=== PATIENT | male | born 1995 | race Caucasian/White ===

== ENCOUNTER 2018-05-11 11:18 | Emergency (ER) | payer OTHER, SELFPAY ==
[2018-05-11 11:19] VITALS: BP 166/104; PULSE 88; RESP 20; TEMP 36.6; O2SAT 100; BMI 39.9
--- NOTE | 2018-05-11 12:03 | RAD_ITS ---
STUDY: X-RAY - LEFT KNEE REASON FOR EXAM: Male, 22 years old. Pain following a fall. TECHNIQUE: 3 view(s) of the knee. COMPARISON: None. FINDINGS: Normal visualized distal femur. Normal visualized proximal tibia and fibula. Normal proximal tibiofibular articulation. Normal medial femorotibial compartment. Normal lateral femorotibial compartment. Normal patellofemoral articulation. Multiple tiny radiopacities seen in the medial soft tissues overlying the proximal anterior tibia. These most likely represent foreign bodies. RAD/Knee 3 Views IMPRESSION: Find suggestive of foreign bodies within the soft tissues anterior and medial to the proximal tibia. Electronically Signed: Blu Reno MD at 12:58 EST Tel [phone], Service support ,
--- NOTE | 2018-05-11 12:03 | RAD_ITS ---
STUDY: X-RAY - LEFT ANKLE REASON FOR EXAM: Male, 22 years old. Anterior ankle pain following a fall. TECHNIQUE: 3 view(s) of the ankle. COMPARISON: None. FINDINGS: Normal visualized distal tibia and fibula. Normal medial and lateral malleoli. Normal tibiotalar articulation and ankle mortise. Normal visualized talus and calcaneus. The visualized subtalar, talonavicular, calcaneocuboid and tarsal articulations are normal. Soft tissue swelling overlying the medial malleolus. RAD/Ankle min 3 Views IMPRESSION: Soft tissue swelling overlying the medial malleolus. Electronically Signed: Blu Reno MD at 12:57 EST Tel [phone], Service support ,
--- NOTE | 2018-05-11 12:03 | RAD_ITS ---
STUDY: X-RAY - LEFT WRIST REASON FOR EXAM: Male, 22 years old. History of fall. TECHNIQUE: 3 view(s) of the wrist were obtained. COMPARISON: None. FINDINGS: Normal visualized distal radius and ulna. Normal radiocarpal articulation. Normal distal radioulnar articulation. Normal carpal bones. Normal carpal articulations. Normal carpometacarpal articulation of the thumb. Normal second through fifth carpometacarpal articulations. Normal visualized metacarpal bones. Soft tissue swelling. RAD/Wrist min 3 Views IMPRESSION: Soft tissue swelling. Electronically Signed: Blu Reno MD at 12:59 EST Tel [phone], Service support ,
[2018-05-11 12:40] VITALS: BP 161/95; PULSE 87; RESP 18; O2SAT 99
[2018-05-11 12:45] VITALS: O2SAT 99
[2018-05-11] MEDS: oxyCODONE 5 MG Tablet 10 MG PO (13:03)
[2018-05-11] MEDS: Diphth,Pertuss(Acell),Tet Vac 0.5 ML Vial IM (13:04)
--- NOTE | 2018-05-11 13:53 | ED.VISSUMM ---
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 The fall was mechanical. He slipped and landed on his left knee, ankle, and wrist. He did not hit his head or lose consciousness. He denies any other injuries. No back pain. He sustained an abrasion to his left knee. Physical Examination: No sign of head trauma. No cervical spine tenderness. No lumbar or thoracic tenderness. No abdominal tenderness. He has a superficial abrasion on his left wrist with tenderness over the distal radius but the skin is otherwise intact. No full-thickness lacerations. Strong distal pulses. No other upper extremity tenderness noted. He has tenderness on palpation left knee and ankle both medially. There are multiple abrasions over the left knee but nothing full-thickness. There are multiple pieces of gravel and dirt over his left knee. Test Results: Left wrist x-ray negative for fracture. Left ankle x-ray negative for fracture. Left knee x-ray negative for fracture but did reveal multiple radiopaque foreign bodies which when I reexamined him, appeared to actually be on the skin and not actually in the soft tissues. Emergency Department Course and Treatment: His left knee was cleansed and irrigated extensively. There is no evidence of foreign body underneath the skin. There are multiple superficial abrasions/road rash from landing on gravel/pavement. The wounds were cleansed and dressed. He was placed in an Alfredo bandage. He was placed in an Aircast for the left ankle and given crutches. He has no evidence of other injuries. He is able to walk with crutches without difficulty despite also having a Velcro left wrist splint on. He was referred to orthopedics for follow-up. He will return if worse. Treatment Plan: Follow-up with orthopedics Disposition: Home stable Impression: Initial encounter acute left ankle sprain, initial encounter acute left knee contusion, initial encounter left knee abrasions, initial encounter left wrist sprain, work-related This note was generated with Vide[employer] dictation software. It may contain incorrect words, spelling, and punctuation that were not noted in review of the chart prior to signing ED Disposition - Plan for ED Patient: Chief Complaint: Fall Instructions: ED Sprain Knee, ED Sprain Wrist, ED Splint Care Velcro Referrals: Valdemar Lucero MD [STAFF PHYSICIAN] - As soon as possible
--- NOTE | 2018-05-11 13:59 | ED.VISSUMM ---
- ER Visit Summary Date of Service: 05/11/18 Chief Complaint: [] History of Present Illness: The patient is a 22 M [] Physical Examination: [] Test Results: [] Emergency Department Course and Treatment: [] Treatment Plan: [] Disposition: [] Impression: [] This note was generated with C[employer] dictation software. It may contain incorrect words, spelling, and punctuation that were not noted in review of the chart prior to signing ED Disposition - Plan for ED Patient: Chief Complaint: Fall Instructions: ED Sprain Knee, ED Splint Care Velcro, ED Sprain Wrist Referrals: Valdemar Lucero MD [STAFF PHYSICIAN] - As soon as possible
[2018-05-11 14:31] VITALS: BP 152/80; PULSE 85; RESP 18; O2SAT 98
[2018-05-11 14:54] VITALS: BP 152/80; PULSE 85; RESP 14; O2SAT 98
[2018-05-11] MEDS: BACITRACIN 15 GM Tube 1 APPLIC TOPICAL (14:56)
--- NOTE | 2018-05-11 15:02 | ED.RN ---
CALLED AND SPOKE WITH [facility]. NO TEST PER EMPLOYER. CALLED [phone]
== END 2018-05-11 14:56 | disposition home or self-care (01) ==
LOC: ED 13:39
PROVIDERS: Emergency Provider Emergency Medicine; Family Provider Family Medicine; PCP Family Medicine
DX: S93.402A Sprain of unspecified ligament of left ankle, initial encounter (principal); S80.02XA Contusion of left knee, initial encounter; S80.212A Abrasion, left knee, initial encounter; S63.502A Unspecified sprain of left wrist, initial encounter; S60.812A Abrasion of left wrist, initial encounter; W17.89XA Other fall from one level to another, initial encounter; Y93.9 Activity, unspecified; Y92.9 Unspecified place or not applicable
CPT/HCPCS: 73110; 73562; 73610; 90715; 99285

== ENCOUNTER 2021-05-07 15:56 | Emergency (ER) | payer OTHER, SELFPAY ==
[2021-05-07 15:57] VITALS: BP 167/101; PULSE 127; RESP 20; TEMP 35.9; O2SAT 97; BMI 41.2
--- NOTE | 2021-05-07 16:00 | EKG12_ITS ---
Test Reason : CP Blood Pressure : / mmHG Vent. Rate : 120 BPM Atrial Rate : 120 BPM P-R Int : 126 ms QRS Dur : 090 ms QT Int : 320 ms P-R-T Axes : 007 052 021 degrees QTc Int : 452 ms Sinus tachycardia Otherwise normal ECG Confirmed by SAFIA BHANDARI, CALEB ([id number]), newspaper managing editor NEIDA RAMOS ([id number]) on 05/09/2021 1:52:21 P M Referred By: PÉREZ/SHIN/PEDRO/MISSAEL Confirmed By:PRUDENCE BAIG MD
--- NOTE | 2021-05-07 16:30 | RAD_ITS ---
STUDY: X-RAY CHEST REASON FOR EXAM: Male, 25 years old. Chest pain TECHNIQUE: Single AP portable view of the chest. COMPARISON: 2012 FINDINGS: The lungs are clear and expanded. There is no demonstrated pleural abnormality. Normal size heart. Normal mediastinum and tresa. Normal visualized pulmonary arteries. Normal visualized aortic arch and descending thoracic aorta. Stable surgical hardware in the thoracic spine. Normal visualized ribs, clavicles, and shoulders. There is no demonstrated abnormality of the visualized soft tissue structures of the upper abdomen. RAD/Chest 1 View (Portable) IMPRESSION: No acute pulmonary process Electronically Signed: Jonas Wu MD at 16:58 EST , Service support ,
[2021-05-07 17:03] LABS: Absolute Lymphocyte Count 1.39 X10^3/uL (0.83-4.51); Absolute Neutrophil Count 5.8 X10^3/uL (2.0-7.7); Basophil# 0.03 X10^3/uL; Basophil% 0.4 % (0-1); Hematocrit 44.7 % (40-54); Hemoglobin 15.6 g/dL (13.0-16.5); Lymphocyte # 1.39 X10^3/ul (0.83-4.51); Lymphocyte % 17.2 % (19-41); Mean Corp Hgb Conc 34.9 g/dL (32-36); Mean Corpuscular Hgb 29.3 pg (27.0-32.0); Mean Corpuscular Volume 83.9 fL (80-94); Mean Platelet Vol. 10.2 fl (6.2-12.0); Monocyte# 0.89 X10^3/uL; NRBC Flagged by Analyzer 0 % (0-5); Neutrophil # 5.75 X10^3/uL (2.7-7.7); Platelet Count 202 K/mm3 (150-450); RBC Distribution Width SD 39.4 fl (35.1-43.9); Red Blood Count 5.33 M/mm3 (4.6-6.2); White Blood Count 8.1 K/mm3 (4.4-11.0)
[2021-05-07 17:17] LABS: Anion Gap 10 (5-15); BUN 17 mg/dL (7-18); BUN/Creat Ratio 13.9 RATIO (10-20); Calcium,Total 9.1 mg/dL (8.5-10.1); Chloride 104 mmol/L (98-107); Creatinine, Serum 1.22 mg/dL (0.70-1.30); EST Glomerular Filtration Rate 76 mL/min (>60); Est Glom Filt Rate - Afr Amer 93 mL/min (>60); Estimated Creatinine Clearance 110.63 ml/min; Glucose 127 mg/dL (74-106); Potassium 3.7 mmol/L (3.5-5.1); Sodium Level 133 mmol/L (136-145); Troponin-I HS 7 pg/mL (3.0-78.0)
[2021-05-07 18:18] VITALS: BP 154/106; PULSE 113; RESP 15; O2SAT 97
--- NOTE | 2021-05-07 18:40 | CT_ITS ---
STUDY: CTA CHEST REASON FOR EXAM: Male, 25 years old. Dyspnea. Chest pain for 6 days. RADIATION DOSAGE (If Supplied By Facility): CTDIvol = ( 12.66 ) mGy, DLP = ( 567.16 ) mGycm TECHNIQUE: The examination was performed with the intravenous administration of IV 100mL Isovue-370. Post-processing of the angiographic images was performed, with multiplanar reformation and 3D reconstruction. Individualized dose optimization techniques were used for this CT. COMPARISON: Chest, 05/07/2021. FINDINGS: Normal enhancement of the main pulmonary artery and right and left pulmonary arteries. Normal enhancement of the bilateral peripheral pulmonary arteries. There is no demonstrated pulmonary embolism. Normal thoracic aorta and visualized great vessels. There is no demonstrated aortic dissection. Normal heart and pericardium. Normal mediastinum. Normal hilar regions. Normal visualized trachea and bronchi. The lungs are well expanded. Normal pulmonary parenchyma. Normal pleura. Normal chest wall structures. There is fusion of the thoracolumbar spine. There is splenomegaly with normal size liver. CT/CTA Chest W/WO Contrast IMPRESSION: 1. No evidence of pulmonary embolus. 2. No aortic dissection or aneurysm. 3. No acute pulmonary disease. 4. Splenomegaly. 5. Fusion of the thoracolumbar spine. Electronically Signed: Wolfgang Hsu DO at 19:18 EST Tel [phone], Service support ,
--- NOTE | 2021-05-07 18:50 | ED.RN ---
rn to bedside to swab for covid. pt refused. states he was tested for covid on wednesday and result was negative. dr lenz notified at this time.
--- NOTE | 2021-05-07 21:01 | EDS_ITS ---
HPI History of Present Illness Chief Complaint: Chest Pain Informant: patient Onset/Context/Timing Onset: Days (6) Activity at onset: gradual Timing: Continuous Quality: Positive for Sharp Location: Left Chest Worsened By: Nothing Relieved By: Nothing Associated Symptoms: Positive for Nausea, Vomiting, Diaphoresis, Fever, Lightheadedness, Acid Reflux and Palpitations; Negative for Dyspnea and Cough Narrative Narrative: Patient presents with chest pain that has been constant for the past 6 days. Patient states it is gradually been getting worse. Patient states it is sharp. Patient states it waxes and wanes. Patient states that sometimes he gets a quick stabbing pain in his left chest. Patient states nothing makes it worse and nothing makes it better. Patient admits to some nausea and vomiting. Patient admits to some diaphoresis. Patient also admits to a fever and sore throat. Patient is concerned that he may have strep throat. Patient started amoxicillin that his mother gave him that she had leftover from previous strep throat. CVD Risk Factors: Positive for Smoking; Negative for Hypertension, Diabetes, Hypercholesterolemia and Family History 1' </=55 PE Risk Factors: Positive for Recent Travel/Surgery and Prior DVT or PE; Negative for Recent Immobilization, Cancer and OCP + Smoking + >/=35 PFSH PFSH Medical History (Updated 05/07/21 @ 21:[address] Josr De León DO) GERD (gastroesophageal reflux disease) Pulmonary embolism Allergy/AdvReac Type Severity Reaction Status Date / Time No Known Allergies Allergy Verified 05/07/21 16:00 Surgical History (Updated 05/07/21 @ 21:[address] Josr De León DO) History of back surgery Social History (Updated 05/07/21 @ 21:[address] Josr De León DO) Smoking Status: Heavy Smoker (>10/day) ROS ROS ED Constitutional Constitutional ED: Reports chills and fever(s) Eyes Eyes: Denies blurry vision or change in vision ENT ENT ED: Reports sore throat; Denies rhinorrhea Cardiovascular Cardiovascular: Reports chest pain and palpitations Respiratory/Chest Respiratory/Chest: Denies cough or dyspnea Gastrointestinal Gastrointestinal: Reports diarrhea, nausea and vomiting; Denies abdominal pain Genitourinary Genitourinary ED: Denies dysuria or hematuria Musculoskeletal Musculoskeletal: Reports back pain and neck pain Integumentary Denies abscess or rash Neurologic Neurologic: Reports headache(s); Denies weakness Allergic/Immunologic Allergic/Immunologic ED: Denies mouth swelling or urticaria EXAM Physical Exam Const Vital Signs: 05/07/21 15:57 05/07/21 18:16 05/07/21 18:18 Temperature 96.7 F L Temperature Source Temporal Pulse Rate 127 H 113 H Respiratory Rate 20 H 15 Respiratory Effort Blood Pressure 167/101 H 154/106 H Blood Pressure Mean 123 122 Pulse Ox 97 97 Oxygen Delivery Method Room Air Room Air Room Air 05/07/21 18:19 Temperature Temperature Source Pulse Rate Respiratory Rate Respiratory Effort Normal Non-Labored Blood Pressure Blood Pressure Mean Pulse Ox Oxygen Delivery Method Positive well nourished, well developed and obese General Appearance ED: well developed Nutritional Appearance: obese HEENT normocephalic and atraumatic Eyes PERRL and EOMs intact bilaterally Neck supple and no JVD Chest Wall palpation of chest normal Resp normal respiratory effort and clear to auscultation bilaterally Effort and Inspection: Negative for respiratory distress Cardio regular rhythm and no murmurs Rate: tachycardic GI normal to inspection, nondistended, normoactive bowel sounds, soft to palpation, non-tender and non-distended Extremity normal to inspection General Extremety ED: Negative for edema or tenderness General Extremity: Negative for edema Neuro oriented x3, CN's II-XII intact bilaterally and no sensory deficits noted Sensorium / Orientation: awake and alert Motor Exam: strength 5/5 throughout Psych mental status grossly normal Heart Score History: Slightly/Non-Suspicious ECG: Normal Age: </= 45 years Risk Factors: 1 or 2 Risk Factors Troponin: </= Normal Limit Score: 1 MDM MDM MDM Narrative Medical decision making narrative: EKG was obtained. On my interpretation, it showed a sinus tachycardia with a rate of 120. [place] interval, QRS interval, and QTc intervals were all normal. [place] was normal. There are no acute ST or T wave changes. CBC and basic metabolic profile were within normal limits. High- sensitivity troponin was normal. Portable 1 view chest x-ray was obtained. On my interpretation, lung castillo are clear. There is normal cardiac silhouette. Bony thorax is normal. There is no acute process noted. Radiologist also interpreted the x-ray and agrees. Rapid strep was obtained and was negative. With the patient's prior history of PE, and recent travel, a CTA of the chest was obtained. There is no evidence of pulmonary embolism. Patient was advised of his findings. Patient was advised that this most likely a viral syndrome. Patient was instructed to follow-up with his primary care physician in 3 to 5 days. Patient understood and was agreeable with the plan. All questions were answered. Lab Data Attestation: I reviewed the patient's lab results. Labs: Laboratory Results - last 24 hr 05/07/21 05/07/21 16:45 16:45 WBC 8.1 RBC 5.33 Hgb 15.6 Hct 44.7 MCV 83.9 MCH 29.3 MCHC 34.9 RDW Std Deviation 39.4 RDW Coeff of Madelyn 13.0 Plt Count 202 MPV 10.2 Immature Gran % (Auto) 0.400 Neut % (Auto) 71.0 H Lymph % (Auto) 17.2 L [place] % (Auto) 11.0 H Eos % (Auto) 0.0 Baso % (Auto) 0.4 Absolute Neuts (auto) 5.8 Absolute Lymphs (auto) 1.39 Nucleated RBC % 0 Sodium 133 L Potassium 3.7 Chloride 104 Carbon Dioxide 19.0 L Anion Gap 10 BUN 17 Creatinine 1.22 Estim Creat Clear Calc 110.63 Est GFR (MDRD) Af Amer 93 Est GFR (MDRD) Non-Af 76 BUN/Creatinine Ratio 13.9 Glucose 127 H Calcium 9.1 Troponin I High Sens 7 Radiography Chest X-Ray - ED: 1 View, Read by ED Physician, Read by Radiologist and Normal Diagnostic Testing: Clinical Impression(s) from Imaging Studies Chest X-Ray 05/07/21 16:30 IMPRESSION: No acute pulmonary process Electronically Signed: Jonas Wu MD at 16:58 EST , Service support , Chest CTA 05/07/21 18:40 IMPRESSION: 1. No evidence of pulmonary embolus. 2. No aortic dissection or aneurysm. 3. No acute pulmonary disease. 4. Splenomegaly. 5. Fusion of the thoracolumbar spine. Electronically Signed: Wolfgang Hsu DO at 19:18 EST Tel [phone], Service support , EKG Initial EKG: Attestation: I personally reviewed and interpreted this EKG as follows: Interpretation: No Acute Injury Pattern and Sinus Tachycardia (120) Discharge Plan Triage Chief Complaint: Chest Pain ED Provider: Josr De León Dx/Rx/DC Orders Clinical Impression: Viral illness Instructions: ED Viral Syndrome (Adult) Primary Care Provider: Care Physician,No Primary Referrals: Mike Robles MD [STAFF PHYSICIAN] - 3-5 Days Care Physician,No Primary [Primary Care Provider] - Disposition Disposition: Home, Self Care
[2021-05-07 21:16] VITALS: BP 170/110; PULSE 104; RESP 16; TEMP 36.1
[2021-05-07 21:19] VITALS: BP 170/110
--- NOTE | 2021-05-07 21:19 | ED.RN ---
PT ADVISED THAT HIS BLOOD PRESSURE WAS ELEVATED. PT ADVISED TO FOLLOW UP WITH DR PEDRAZA FOR FURTHER EVALUATION AND POSSIBLE BLOOD PRESSURE MANAGEMENT. PT INFORMED OF THE RISKS OF HAVING UNTREATED HIGH BLOOD PRESSURE WITH INCREASED RISK FOR HEART ATTACK, STROKE, AND KIDNEY FAILURE. PT VOICED UNDERSTANDING.
== END 2021-05-07 21:22 | disposition home or self-care (01) ==
PROVIDERS: Emergency Provider Emergency Medicine
DX: B34.9 Viral infection, unspecified (principal); R07.89 Other chest pain; R11.2 Nausea with vomiting, unspecified; R61 Generalized hyperhidrosis; R19.7 Diarrhea, unspecified; R50.9 Fever, unspecified; J02.9 Acute pharyngitis, unspecified; E66.9 Obesity, unspecified; Z68.41 Body mass index [BMI] 40.0-44.9, adult; K21.9 Gastro-esophageal reflux disease without esophagitis; Z86.718 Personal history of other venous thrombosis and embolism; F17.200 Nicotine dependence, unspecified, uncomplicated
CPT/HCPCS: 71045; 71275; 80048; 84484; 85025; 87880; 93005; 99284; Q9967; A4216

== ENCOUNTER → 2022-09-10 | Outpatient (CLI) | payer BC, SELFPAY ==
[2022-09-10 16:13] LABS: Anion Gap 10 (5-15); BUN 10 mg/dL (7-18); BUN/Creat Ratio 10.4 RATIO (10-20); Calcium,Total 9.5 mg/dL (8.5-10.1); Chloride 102 mmol/L (98-107); Cholesterol 141 mg/dL (200); Creatinine, Serum 0.96 mg/dL (0.70-1.30); EST Glomerular Filtration Rate 99 mL/min (>60); Est Glom Filt Rate - Afr Amer 120 mL/min (>60); Glucose 95 mg/dL (74-106); High Density Lipoprotein 38 mg/dL; Potassium 4.1 mmol/L (3.5-5.1); Sodium Level 139 mmol/L (136-145); Triglycerides 217 mg/dL; Very Low Density Lipoprotein 43 mg/dL (5-40)
== END | disposition home or self-care (01) ==
LOC: MFPLAB 12:16
PROVIDERS: PCP Family Medicine; Referring Provider Family Medicine; Visit Provider Family Medicine
DX: I10 Essential (primary) hypertension (principal)
CPT/HCPCS: 36415; 80048; 80061

== ENCOUNTER → 2025-03-22 | Outpatient (CLI) | payer BC, SELFPAY | END | disposition home or self-care (01) | LOC: MTRAD 11:07 | PROVIDERS: PCP Family Medicine; Referring Provider Family Medicine; Visit Provider Family Medicine | DX: M54.9 Dorsalgia, unspecified (principal) | CPT/HCPCS: 72110 ==